=== PATIENT | female | born 1975 | race African-American/Black ===

== ENCOUNTER 2019-04-14 20:25 | Emergency (ER) | payer BC, MEDICAID ==
[~2019-04-14] VITALS: Ht 167.6 cm; Wt 71.7 kg
[~2019-04-14 20:25] MED LIST: PANTPAK
[2019-04-14 22:31] VITALS: BP 132/79
== END 2019-04-14 22:39 | disposition home or self-care (01) ==
LOC: ER 20:25
DX: R07.81 Pleurodynia (principal)
CPT/HCPCS: 71101

== ENCOUNTER 2024-06-21 17:52 | Emergency (ER) | payer MEDICAID ==
[~2024-06-21] VITALS: Ht 167.6 cm; Wt 77.7 kg
--- NOTE | 2024-06-21 19:34 | DVH ---
CLINICAL INDICATION: r/o fx TECHNIQUE: 3 radiographic views of the right knee were obtained. Comparison: None FINDINGS/IMPRESSION: There is no evidence of acute fracture or dislocation. Mild narrowing of the medial compartment of the right knee. Radiographic findings suggest joint effus ion. The alignment is anatomical. There is no radiopaque foreign body.
[2024-06-21 20:00] VITALS: BP 123/59; PULSE 97; RESP 17; TEMP 97.8; O2SAT 98
[2024-06-21] MEDS ORDERED: IBUP-1456 PO (20:31)
--- NOTE | 2024-06-21 20:32 | ED.PDOC ---
Musculoskeletal HPI Comments 48 year old female presents to ER with complaints of right knee pain x 2 days. Patient states she started experiencing pain/swelling to right knee 2 days ago s/p sticking her right leg out onto the ground to prevent her from falling off a quad that was traveling approximately 10-15 MPH. She rates her current pain a 8/10 to right shoulder without radiation. Denies use of medications for current symptoms and presents to ER with use of crutches that she brought from home. Denies numbness/tingling, hip pain, falling off the quad or any further symptoms/complaints Chief Complaint: Lower Extremity Time Seen by MD: 18:21 Primary Care Provider: CARLIN OLEA Reviewed Notes: Nurses Notes, Medications, Allergies Allergies: Coded Allergies: NO KNOWN ALLERGIES (Unverified , 10/08/09) Home Meds Active Scripts Ibuprofen (Ibuprofen) 800 Mg Tab, 1 TAB PO TID PRN, #30 TAB 0 Refills Prov:OK KITCHEN 06/21/24 Reported Medications Pantoprazole Sodium (Protonix) Alireza 10/08/09 Information Source: Patient Mode of Arrival: Ambulatory Past Medical History PAST MEDICAL HISTORY: HTN Surgical History: Denies all surgeries FINISHING PAN OPERATOR History: No Pertinent FINISHING PAN OPERATOR History Family History Family History: Unknown Social History Smoker: Non-Smoker Alcohol: Denies ETOH Use Drugs: Denies Drug Use Lives In: Home Constitutional: denies: chills, diaphoresis, fatigue, fever, malaise, sweats, weakness, others EENTM: denies: blurred vision, double vision, ear bleeding, ear discharge, ear drainage, ear pain, ear ringing, eye pain, eye redness, hearing loss, mouth pain, mouth swelling, nasal discharge, nose bleeding, nose congestion, nose pain, photophobia, tearing, throat pain, throat swelling, voice changes, others Respiratory: denies: cough, hemoptysis, orthopnea, SOB at rest, shortness of breath, SOB with excertion, stridor, wheezing, others Cardiovascular: denies: chest pain, dizzy spells, diaphoresis, Dyspnea on exertion, edema, irregular heart beat, left arm pain, lightheadedness, palpitations, PND, syncope, others Gastrointestinal: denies: abdomen distended, abdominal pain, blood streaked bowels, constipated, diarrhea, dysphagia, difficulty swallowing, hematemesis, melena, nausea, poor appetite, poor fluid intake, rectal bleeding, rectal pain, vomiting, others Genitourinary: denies: abnormal vagina bleeding, burning, dyspareunia, dysuria, flank pain, frequency, hematuria, incontinence, pain, , vagina discharge, urgency, others Neurological: denies: dizziness, fainting, headache, left sided numbness, left sided weakness, numbness, paresthesia, pre-existing deficit, right sided numbness, right sided weakness, seizure, speech problems, tingling, tremors, weakness, others Musculoskeletal: reports: others (As stated in HPI) Integumetry: reports: others (As stated in HPI) Allergic/Immunocompromised: denies: Difficulty Healing, Frequent Infections, Hives, Itching, others Hematologic/Lymphatic: denies: anemia, blood clots, easy bleeding, easy bruising, swollen glands, others Endocrine: denies: excessive hunger, excessive sweating, excessive thirst, excessive urination, flushing, intolerance to cold, intolerance to heat, unexplained weight gain, unexplained weight loss, others Psychiatric: denies: anxiety, bipolar disorder, depression, hopeless, panic disorder, schizophrenia, sleepless, suicidal, others Physical Exam General Appearance: No Apparent Distress HEENT: PERRL/EOMI Neck: Full Range of Motion, Non-Tender, Normal Respiratory: Chest Non-Tender, Lungs Clear, No Accessory Muscle Use, No Respiratory Distress, Normal Breath Sounds Cardiovascular: No Murmur, No Gallop, Regular Rate/Rhythm Breast Exam: Deferred Gastrointestinal: NOT DONE Genitalia: Deferred Pelvic: Deferred Rectal: Deferred Extremities: No calf tenderness, Normal capillary refill, Normal range of motion Musculoskeletal : Extremity Location: Knee (TTP/mild swelling noted to right anterior knee. Positive anterior drawer test right knee. No deformity/further skin changes noted. Patient favors left leg on ambulation due to pain localized to right anterior knee. Pulses intact) Neurologic: Alert, No Motor Deficits, Normal Affect, Normal Mood, No Sensory Deficits Cerebellar Function: Normal Reflexes: Normal Skin: Dry, Normal Color, Warm Peripheral Pulses: 2+ femoral (R), 2+ femoral (L), 2+ dorsalis pedis (R), 2+ dorsalis pedis (L) Lymphatic: No Adenopathy Was a procedure done? Was a procedure done?: No Sedation Sedation?: No Differential Diagnosis EXT Differential Diagnosis: Fracture, Dislocation, Neurovascular injury X-Ray, Labs, Meds, VS Vital Signs Date Time Temp Pulse Resp B/P (MAP) Pulse Ox O2 Delivery O2 Flow Rate FiO2 06/21/24 18:13 97.8 97 17 123/59 (80) 98 97.8 PATIENT: XOCHITL DALEACCT: [id number]: [id number] : 1975 LOC: ER ROOM / BED: / AGE / SEX: 48 / F ADM STATUS: REG ER SERVICE 11 ORDERING PHYSICIAN: OK KITCHEN PROCEDURE(s): RKN3 - R KNEE 3V XRAY REASON: r/o fx ORDER NUMBER(s): [id number], ACCESSION NUMBER(s): [id number] CLINICAL INDICATION: r/o fx TECHNIQUE: 3 radiographic views of the right knee were obtained. Comparison: None FINDINGS/IMPRESSION: There is no evidence of acute fracture or dislocation. Mild narrowing of the medial compartment of the right knee. Radiographic findings suggest joint effusion. The alignment is anatomical. There is no radiopaque foreign body. ATED BY: LAKEISHA RAHMAN Jr., DO DICTATED DATE/TIME: 06/21/241930 SIGNED BY: LAKEISHA RAHMAN Jr., SIGNED DATE/TIME: 06/21/241930 CC: Right knee x-ray reviewed Right knee immobilizer immobilizer applied Patient neurovascularly intact Advised on rest/no strenuous activity, elevation and alternate ice on/off as needed for pain/swelling Patient states she "borrowed" her current crutches and requested crutches in ER. Crutches ordered and patient educated on proper use Advised to follow up with PCP and orthopedics in 1-2 days Patient verbalized understanding and agreeable with current plan of care Advised to return to ER immediately if symptoms worsen Images Reviewed?: Images reviewed and evaluated by me Time of 1ST Reevaluation: 20:02 Reevaluation 1ST: N/A Patient Education/Counseling: Diagnosis, Treatment, Prognosis, Need For Follow Up Family Education/Counseling: No Family Present Departure 1 Departure Time of Disposition: 20:22 Impression: Primary Impression: Right knee sprain Qualified Codes: S83.91XA - Sprain of unspecified site of right knee, initial encounter Disposition: HOME / SELF CARE / HOMELESS Condition: Stable Additional Instructions: Discharge Note: Follow up with your primary Dr. and orthopedics Take your prescriptions as ordered. If your condition becomes worse call and follow up with your primary DrDilip for instructions or return to the ER if needed. Thank you for visiting [facility]. e-Prescriptions Ibuprofen (Ibuprofen) 800 Mg Tab 1 TAB PO TID PRN, #30 TAB 0 Refills Prov: OK KITCHEN 06/21/24 Discharged With: Friend Critical Care Note Critical Care Time?: No Stability Stability form required: No Heart Score Heart Score: Heart Score Response (Comments) Value History N/A 0 EKG N/A 0 Age N/A 0 Risk Factors N/A 0 Troponin N/A 0 Total 0 OK KITCHEN Jun 21, 2024 20:31
== END 2024-06-21 21:09 | disposition home or self-care (01) ==
LOC: ER 17:54
DX: S83.8X1A Sprain of other specified parts of right knee, initial encounter (principal); I10 Essential (primary) hypertension; X58.XXXA Exposure to other specified factors, initial encounter; Y93.89 Activity, other specified; Y92.89 Other specified places as the place of occurrence of the external cause; Y99.9 Unspecified external cause status
CPT/HCPCS: 29505; 73562

== ENCOUNTER 2024-10-02 22:43 | Inpatient (IN) | payer MEDICAID ==
[~2024-10-02] VITALS: Ht 167.6 cm; Wt 72.7 kg
[~2024-10-02 22:43] MED LIST changes: +IBUP-1456 PO
[2024-10-02 23:33] VITALS: RESP 18
[2024-10-02] MEDS: ONDANSETRON HCL 4 MG/2 ML VIAL IV ONE (23:50)
[2024-10-02] MEDS: MORPHINE SULFATE INJ 2 MG/ml SYRG IV ONE (23:51)
[2024-10-03] VITALS (7 sets, daily range): BP systolic 142–149; BP diastolic 70–83; PULSE 46–61; RESP 16–20; TEMP 98.3–99.2; O2SAT 97–100
[2024-10-03] MEDS: PANTOPRAZOLE 40 MG/10 ML VIAL INJ IV ONE ×2 (00:03→04:57)
--- NOTE | 2024-10-03 00:41 | ED.PDOC ---
History of Present Illness HPI Comments 48-year-old female who is brought in by ambulance from private residence for chief complaint of a abdominal and back pain, nausea, vomiting, and palpitations. Patient endorses on history of symptoms following initial, unprovoked and gradual onset. Pain is an 8/10 in severity and originates in her suprapubic region to her lower back. She reports symptoms feeling similar to when she had gastritis in the past. States on, usually, being treated for gastritis flare-ups with pain medications, Zofran, and and Protonix. Patient denies on having any bloody or bilious vomitus, diarrhea, constipation, urinary symptoms, fever, chills, or further associated symptoms. Per EMS report, vitals were stable within normal limits, with the exception bradycardic in the 50s having occasional PVCs shown via wine fermenter. Chief Complaint: Abdominal Pain Time Seen by MD: 23:40 Primary Care Provider: CARLIN OLEA Reviewed Notes: Nurses Notes, Air Conditioning Technician Notes, Medications, Allergies Allergies: Coded Allergies: NO KNOWN ALLERGIES (Unverified , 10/08/09) Home Meds Active Scripts Ibuprofen (Ibuprofen) 800 Mg Tab, 1 TAB PO TID PRN, #30 TAB 0 Refills Prov:OK KITCHEN 06/21/24 Reported Medications Oxycodone W/ Acetaminophen (Percocet 5/325MG) 1 Tab Tb, 2 TAB PO QID, #120 TAB 10/03/24 Tizanidine Hydrochloride (Zanaflex) 4 Mg Cap, 1 CAP PO BID, #60 CAP 10/03/24 Pantoprazole Sodium (Protonix) Alireza 10/08/09 Information Source: Patient, Emergency Med Personnel Mode of Arrival: Ambulatory Severity: Moderate Timing: Days Duration: Since onset Prehospital treatment: 12 Lead EKG, Accucheck, Fourdrinier Tender, Treatment (Zofran) Review of Systems: REVIEW OF SYSTEMS: General: No fever, no chills, or fatigue HEENT: No sore throat, no earache, no congestion, no neck pain. Cardiac: Palpitations, no chest pain Lungs: No shortness of breath, no cough. GI: Abdominal pain, nausea, vomiting no diarrhea, no constipation : No dysuria, frequency, or urgency. No hematuria. Musculoskeletal: Back pain, no joint pain , no joint swelling, no extremity edema. Skin: No rash, no itching. Neuro: No headache, no dizziness, no weakness Vital Signs Vital Signs Date Time Temp Pulse Resp B/P (MAP) Pulse Ox O2 Delivery O2 Flow Rate FiO2 10/03/24 02:00 65 18 141/66 (91) 95 10/02/24 23:33 Room Air* 0 21 10/02/24 23:18 99.1 99.1 Physical Exam PHYSICAL EXAM: General: Awake, alert and oriented. No acute distress. Skin: Skin in warm, dry and intact. Appropriate color for ethnicity. HEENT: The head is normocephalic and atraumatic. Conjunctivae are clear without exudates or hemorrhage. Sclera is non-icteric. EOM are intact. No signs of nystagmus. Eyelids are normal in appearance without swelling or lesions. Oral mucosa is pink and moist Neck: The neck is supple with normal range of motion. No JVD. Cardiac: Bradycardic heart rate but normal rhythm. No murmurs, gallops, or rubs are auscultated. Respiratory: No signs of respiratory distress. Lung sounds are clear in all lobes bilaterally without rales, rhonchi, or wheezes. Abdominal: Generalized abdominal tenderness. Abdomen is soft, without distention, guarding or rigidity. Bowel sounds are present and normoactive in all four quadrants. Extremities: Upper and lower extremities are atraumatic in appearance without deformity or edema. Neurological: The patient is awake, alert and oriented to person, place, and time with normal speech. Speech is clear. There is no facial asymmetry. Psychiatric: Appropriate mood and affect. Good judgement and insight. Past Medical History PAST MEDICAL HISTORY: HTN Past Medical History (Other): Gastritis Chronic back pain syndrome Surgical History: Denies all surgeries COTTON OPENER History: No Pertinent COTTON OPENER History Family History Family History: Unknown Social History Smoker: Non-Smoker Alcohol: Denies ETOH Use Drugs: Denies Drug Use Lives In: Home Was a procedure done? Was a procedure done?: No EKG EKG : Pulse Rate (adult): 66 [place]: Normal Cardiac Rhythm: NSR Block: None Hypertrophy: None ST: Normal Comments No STEMI Differential Dx Considerations may include: Differential diagnoses considered include: Abdominal aortic aneurysm, VA, esophageal rupture, intestinal obstruction, mesenteric ischemia, perforated viscus or solid organ rupture, CHF with hepatomegaly, pneumonia, abscess, appendicitis, biliary disease, diverticulitis, gastritis, gastroenteritis, hepatitis, hernia, inflammatory bowel disease, pancreatitis, peptic ulcer disease, urinary tract infection, ureteral colic, constipation, GERD, irritable syndrome, abdominal wall pain, nonspecific abdominal pain, herpes zoster, nephrolithiasis. [ ]Also ruptured ectopic , ovarian torsion/cyst, tubo- ovarian abscess, PID, endometriosis, mittleschmerz. X-Ray, Labs, Meds, VS Vital Signs Date Time Temp Pulse Resp B/P (MAP) Pulse Ox O2 Delivery O2 Flow Rate FiO2 10/03/24 02:00 65 18 141/66 (91) 95 10/03/24 00:41 66 10/03/24 00:24 61 19 140/70 10/02/24 23:51 74 13 97/66 10/02/24 23:33 18 Room Air* 0 21 10/02/24 23:18 99.1 64 17 97/66 (76) 99 99.1 10/02/24 23:01 99.3 59 16 170/83 (112) 98 99.3 10/02/24 22:57 66 Lab Test 10/03/24 02:42 10/03/24 01:37 10/03/24 00:11 Range/Units White Blood Count 9.4 4.4-10.8 10^3/uL Red Blood Count 4.66 4.0-5.20 10^6/uL Hemoglobin 13.7 12.2-16.2 g/dL Hematocrit 44.8 36.0-46.0 % Mean Corpuscular Volume 96.1 80.0-100.0 fL Mean Corpuscular Hemoglobin 29.3 28.0-32.0 pg Mean Corpuscular Hemoglobin Concent 30.5 L 32.0-36.0 g/dL Red Cell Distribution Width 15.7 H 11.8-14.3 % Platelet Count 227 140-450 10^3/uL Mean Platelet Volume 7.9 6.9-10.8 fL Neutrophils (%) (Auto) 83.3 H 37.0-80.0 % Lymphocytes (%) (Auto) 9.4 L 10.0-50.0 % Monocytes (%) (Auto) 7.3 0.0-12.0 % Eosinophils (%) (Auto) 0.0 0.0-7.0 % Basophils (%) (Auto) 0.0 0.0-2.0 % Neutrophils # (Auto) 7.9 1.6-8.6 10 ^3/uL Lymphocytes # (Auto) 0.9 0.4-5.4 10 ^3/uL Monocytes # (Auto) 0.7 0-1.3 10 ^3/uL Eosinophils # (Auto) 0 0-0.8 10 ^3/uL Basophils # (Auto) 0 0-0.2 10 ^3/uL Nucleated Red Blood Cells 0.0 % Lactic Acid Level 3.3 *H 2.9 *H 0.4-2.0 mmol/L Sodium Level 138 136-145 mmol/L Potassium Level 3.5 3.5-5.1 mmol/L Chloride Level 103 98-107 mmol/L Carbon Dioxide Level 20 20-31 mmol/L Anion Gap 15 5-15 Blood Urea Nitrogen 8 L 9-23 mg/dL Creatinine 0.70 0.550-1.02 mg/dL Glomerular Filtration Rate Calc 107 >90 mL/min BUN/Creatinine Ratio 11.4 10.0-20.0 Serum Glucose 113 H 74-106 mg/dL Calcium Level 10.4 8.7-10.4 mg/dL Total Bilirubin 0.8 0.2-1.0 mg/dL Aspartate Amino Transferase (AST) 34 13-40 U/L Alanine Aminotransferase (ALT) 23 7-40 U/L Alkaline Phosphatase 73 46-116 U/L Total Protein 9.5 H 5.7-8.2 g/dL Albumin 5.8 H 3.2-4.8 g/dL Lipase 32 12-53 U/L Thyroid Stimulating Hormone (TSH) 1.69 0.55-4.78 uIU/mL Current Medications Medications (Trade) Dose Ordered Sig/Floyd Route Start Time Stop Time Status Last Admin Morphine Sulfate 2 mg ONCE ONCE IV 10/03/24 00:00 10/03/24 00:01 DC 10/02/24 23:51 Ondansetron HCl (Zofran) 4 mg ONCE ONCE IV 10/03/24 00:00 10/03/24 00:01 MI 10/02/24 23:50 Pantoprazole Sodium (Protonix) 40 mg ONCE ONCE IV 10/03/24 00:00 10/03/24 00:01 DC 10/03/24 00:03 Sodium Chloride 1,000 ml @ 1,000 mls/hr Q1H ONCE IV 10/03/24 01:00 10/03/24 01:59 DC 10/03/24 01:12 Ketorolac Tromethamine (Toradol Injection) 15 mg ONCE ONCE IV 10/03/24 02:30 10/03/24 05:13 DC 10/03/24 02:56 Acetaminophen (Tylenol Tablet Or Capsule) 1,000 mg ONCE ONCE PO 10/03/24 02:30 10/03/24 02:31 DC 10/03/24 03:00 Sodium Chloride 1,000 ml @ 1,000 mls/hr Q1H ONCE IV 10/03/24 02:30 10/03/24 03:29 DC 10/03/24 02:54 Sodium Chloride 1,000 ml @ 130 mls/hr Q7H42M ONCE IV 10/03/24 02:30 10/03/24 08:52 DC 10/03/24 04:00 PATIENT: XOCHITL DALE ACCT: [id number] UNIT: [id number] : 1975 LOC: ER ROOM / BED: / AGE / SEX: 48 / F ADM STATUS: REG ER SERVICE [id number] ORDERING PHYSICIAN: MAXIMILIANO MATA MD PROCEDURE(s): ABPL - CT AB PEL WO CON-NO ORAL OR IV REASON: Abdominal pain ORDER NUMBER(s): [id number], ACCESSION NUMBER(s): [id number] Exam: CT CT AB PEL WO CON-NO ORAL OR IV History: Abdominal pain Comparison Study: None TECHNIQUE: Multidetector CT of the abdomen and pelvis was performed from lung bases to pubic symphysis. Imaging was performed without IV contrast. Axial, coronal, and sagittal multiplanar reformats were obtained from the axial data set by the technologist. RADIATION DOSE: CTDI vol 5.48 mGy. DLP 263.69 mGy.cm Findings: Limited evaluation of the solid organs in the absence of IV contrast. Liver: Unremarkable. Spleen: Unremarkable. Pancreas: Unremarkable. Gallbladder: Unremarkable. Adrenals: Unremarkable Kidneys: Unremarkable. Pelvic Viscera: Unremarkable. Vasculature: Unremarkable. Retroperitoneum: Absent Bowel: No bowel obstruction. Colonic diverticulosis without CT evidence of diverticulitis. The appendix is normal. Musculoskeletal: Unremarkable. Soft tissues: Unremarkable Lungs: The lung bases are clear. Impression: 1. No acute abdominopelvic abnormality identified. ATED BY: DENNIS CHILDERS MD DICTATED DATE/TIME: 10/03/2439 SIGNED BY: DENNIS CHILDERS MD SIGNED DATE/TIME: 10/03/2439 CC: Time of 1ST Reevaluation: 00:10 Reevaluation 1ST: Unchanged Patient Education/Counseling: Other (Need for admission) Family Education/Counseling: No Family Present SEPSIS Sepsis Screen Date sepsis recognized/suspect: Oct 02, 2024 Time Sepsis recognized/suspect: 2335 Recent Procedure: No On Antibiotic Therapy: No Respiratory Rate >20: No Heart Rate >90: No Temp<36 C (96.8 F) or >38.3 C: No SBP <90 or MAP <65 mmHG: No New Acute Mental Status Change: No Is the patient on CPAP, BIPAP,: No Physician Orders Ct Ab Pel Wo Con-No Oral Or Iv (10/02/24 23:52) Blood Culture (10/03/24 01:10) Vital Signs Date Time Temp Pulse Resp B/P (MAP) Pulse Ox O2 Delivery O2 Flow Rate FiO2 10/03/24 02:00 65 18 141/66 (91) 95 10/03/24 00:41 66 10/03/24 00:24 61 19 140/70 10/02/24 23:51 74 13 97/66 10/02/24 23:33 18 Room Air* 0 21 10/02/24 23:18 99.1 64 17 97/66 (76) 99 99.1 10/02/24 23:01 99.3 59 16 170/83 (112) 98 99.3 10/02/24 22:57 66 Laboratory Tests Test 10/03/24 00:11 10/03/24 01:37 10/03/24 02:42 Lactic Acid Level 2.9 mmol/L (0.4-2.0) *H 3.3 mmol/L (0.4-2.0) *H White Blood Count 9.4 10^3/uL (4.4-10.8) Departure 1 Departure Time of Disposition: 03:06 Impression: Primary Impression: Intractable abdominal pain Additional Impression: Lactic acidemia Disposition: ADMITTED INPATIENT Condition: Stable Comments Patient admitted to hospitalist service for further treatment, evaluation and monitoring. Extensive evaluation was performed in attempt to identify or rule out: (See differential diagnosis section) The following tests were ordered, and results were reviewed by me and discussed with patient: (See diagnostic results section) The following test were independently interpreted by me: N/A I reviewed and agreed with the following test results read by other providers: CT abdomen and pelvis without contrast I reviewed the following notes from the pt's past medical encounters: October 08, 2009, June 26, 2010, and June 21, 2024 encounters for abdominal pain, gastroenteritis, and right knee sprain, respectively Additional information was gathered from interviewing the following independent historians: EMS personnel Decision regarding hospitalization or escalation of hospital level of care: Risk and benefits of admission for further treatment of patient's condition was considered. Due to patient's current clinical condition, high risk of decline and poor outcome if discharged and need for further inpatient management and monitoring, patient will be admitted to the hospital. Drug therapy requiring intensive monitoring for toxicity: N/A Parenteral controlled substances: N/A Decision regarding elective major surgery with identified patient or procedure risk factors: N/A Decision regarding emergency major surgery: N/A Decision not to resuscitate or to de-escalate care because of poor prognosis: N/A Diagnosis or treatment significantly limited by social determinants of health: N/A Critical Care Note Critical Care Time?: No Stability Stability form required: No Heart Score Heart Score: Heart Score Response (Comments) Value History N/A 0 EKG N/A 0 Age N/A 0 Risk Factors N/A 0 Troponin N/A 0 Total 0 I personally scribed for MAXIMILIANO MATA MD ([email or web address]) on 10/03/24 at 00:41. Electronically submitted by Josiah Humphrey ([email or web address]). MAXIMILIANO MATA MD Oct 03, 2024 00:41
--- NOTE | 2024-10-03 00:44 | DVH ---
Exam: CT CT AB PEL WO CON-NO ORAL OR IV History: Abdominal pain Comparison Study: None TECHNIQUE: Multidetector CT of the abdomen and pelvis was performed from lung bases to pubic symphysi s. Imaging was performed without IV contrast. Axial, coronal, and sagittal multiplanar reformats were obtained from the axial data set by the technologist. RADIATION DOSE: CTDI vol 5.48 mGy. DLP 263.69 mGy.cm Findings: Limited evaluation of the solid organs in the absence of IV contrast. Liver: Unremarkable. Spleen: Unremarkable. Pancreas: Unremarkable. Gallbladder: Unremarkable. Adrenals: Unremarkable Kidneys: Unremarkable. Pelvic Viscera: Unremarkable. Vasculature: Unremarkable. Retroperitoneum: Absent Bowel: No bowel obstruction. Colonic diverticulosis without CT evidence of diverticulitis. The append ix is normal. Musculoskeletal: Unremarkable. Soft tissues: Unremarkable Lungs: The lung bases are clear. Impression: 1. No acute abdominopelvic abnormality identified.
[2024-10-03 00:53] LABS: Alanine Aminotransferase 23 U/L (7-40); Alkaline Phosphatase 73 U/L (46-116); Anion Gap 15 (5-15); BUN/Creatinine Ratio 11.4 (10.0-20.0); Calcium 10.4 mg/dL (8.7-10.4); Carbon Dioxide 20 mmol/L (20-31); Chloride 103 mmol/L (98-107); Lipase 32 U/L (12-53); Potassium 3.5 mmol/L (3.5-5.1); Sodium 138 mmol/L (136-145)
[2024-10-03 00:54] LABS: Bilirubin, Total 0.8 mg/dL (0.2-1.0)
[2024-10-03 01:07] LABS: Lactic Acid w/Reflex 2.9 mmol/L (0.4-2.0)
[2024-10-03 01:09] LABS: Albumin 5.8 g/dL (3.2-4.8); Blood Urea Nitrogen 8 mg/dL (9-23); Glucose 113 mg/dL (74-106); Total Protein 9.5 g/dL (5.7-8.2)
[2024-10-03] MEDS: SODIUM CHLORIDE 0.9% 1,000 ML IV ONE ×4 (01:12→05:48)
[2024-10-03] MEDS: KETOROLAC TROMETH 30 MG/ML 1ML VIAL IV ONE (02:53)
[2024-10-03] MEDS: ACETAMINOPHEN 500 MG TAB or CAP PO ONE (02:53)
[2024-10-03 03:03] LABS: Hematocrit 44.8 % (36.0-46.0); Hemoglobin 13.7 g/dL (12.2-16.2); Mean Corpuscular Hemoglobin 29.3 pg (28.0-32.0); Mean Corpuscular Volume 96.1 fL (80.0-100.0); Nucleated Red Blood Cells % 0.0 %
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
[2024-10-03 04:55] LABS: Urine Protein, UAD 2+ (Negative)
[2024-10-03] MEDS: SUCRALFATE 1 GM TAB PO ONE (04:57)
[2024-10-03 05:05] LABS: Cannabinoid Screen, Urine Pos (NEGATIVE)
[2024-10-03 05:15] LABS: Amphetamine Screen, Urine Neg (NEGATIVE); Barbiturate Scree,Urine Neg (NEGATIVE); Benzodiazephine Screen, Urine Neg (NEGATIVE); Cocaine Screen, Urine Neg (NEGATIVE); Opiate Scree,Urine Pos (NEGATIVE); Phencyclidine Screen, Urine Neg (NEGATIVE)
[2024-10-03] MEDS: CIPROFLOXACIN 400MG/200ML 200 ML IV ONE (05:48)
[2024-10-03] MEDS ORDERED: TIZA4CAP PO (06:33)
[2024-10-03] MEDS ORDERED: PERCOT PO (06:33)
[2024-10-03] MEDS: MORPHINE SULFATE INJ 2 MG/ml SYRG IV PRN (06:56)
[2024-10-03] MEDS: SUCRALFATE 1 GM TAB PO SCH (07:04)
[2024-10-03] MEDS: ONDANSETRON HCL 4 MG/2 ML VIAL IV PRN (11:18)
[2024-10-03] MEDS: PANTOPRAZOLE 40 MG/10 ML VIAL INJ IV SCH (11:18)
[2024-10-03] MEDS: CIPROFLOXACIN 400MG/200ML 200 ML IV SCH (11:19)
[2024-10-03] MEDS: HYDROcodone-ACET 10/325MG TAB PO PRN (12:44)
--- NOTE | 2024-10-03 13:03 | ECG ---
[facility] Test Date: 2024-10-02 Test Time: 22:57:15 Pat Name: XOCHITL DALE Department: ED Room: [address] [place] [address] 3 Gender: F [employer]: : [id number] Requested By: MAXIMILIANO MATA Order Number: [id number] Reading MD: Jae Niño Measurements Intervals Eva Rate: 66 P: 79 PA: 156 QRS: 65 QRSD: 82 T: 54 QT: 465 QTc: 488 Interpretive Statements Sinus rhythm Ventricular bigeminy Consider left ventricular hypertrophy Electronically Signed On 10-03-2024 19:33:32 PDT by Jae Niño Please click the below link to view image of tracing.
[2024-10-03] MEDS: LORazepam 2MG/ML-1ML VIAL IV SCH (14:45)
[2024-10-03] MEDS: D5W/SOD CHL 0.45% 1,000 ML IV SCH (14:45)
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
[2024-10-03] MEDS: ONDANSETRON HCL 4 MG/2 ML VIAL IV SCH (17:00)
[2024-10-03] MEDS: HYDROmorphone HCL 2 MG/ML VL/or syr IV PRN (17:02)
[2024-10-03] MEDS: METOCLOPRAMIDE HCL 10 MG TAB PO SCH (21:21)
[2024-10-03] MEDS: diphenhdrAMINE HCL 50 MG/1 ML VL IV SCH (21:34)
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
[2024-10-04] VITALS (8 sets, daily range): BP systolic 117–155; BP diastolic 79–94; PULSE 50–76; RESP 16–20; TEMP 97.8–98.6; O2SAT 97–99
[2024-10-04 06:02] LABS: Hematocrit 36.9 % (36.0-46.0); Hemoglobin 12.3 g/dL (12.2-16.2); Mean Corpuscular Hemoglobin 29.7 pg (28.0-32.0); Mean Corpuscular Volume 89.1 fL (80.0-100.0); Nucleated Red Blood Cells % 0.1 %
[2024-10-04 06:32] LABS: Alanine Aminotransferase 17 U/L (7-40); Albumin 4.4 g/dL (3.2-4.8); Alkaline Phosphatase 50 U/L (46-116); Anion Gap 10 (5-15); BUN/Creatinine Ratio 9.6 (10.0-20.0); Calcium 9.0 mg/dL (8.7-10.4); Carbon Dioxide 27 mmol/L (20-31); Chloride 99 mmol/L (98-107); Glucose 99 mg/dL (74-106); Total Protein 7.0 g/dL (5.7-8.2)
[2024-10-04 06:33] LABS: Bilirubin, Total 1.0 mg/dL (0.2-1.0)
[2024-10-04 06:34] LABS: Blood Urea Nitrogen 7 mg/dL (9-23); Potassium 3.0 mmol/L (3.5-5.1); Sodium 136 mmol/L (136-145)
[2024-10-04] MEDS: POTASSIUM CHL 20MEQ/100ML 100 ML IV SCH ×2 (08:45→19:28)
[2024-10-04] MEDS ORDERED: SODIUM CHLORIDE LOCK 10 ML ONE (10:52)
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
[2024-10-04] MEDS: LIDOCAINE VISCOUS 2% 15ML UD ONE (15:14)
[2024-10-04] MEDS: diphenhdrAMINE HCL 50 MG/1 ML VL ONE (15:15)
[2024-10-04] MEDS: fentaNYL CITRATE 100 MCG/2 ML VL ONE (15:15)
[2024-10-04] MEDS: MIDAZOLAM HCL 5 MG/ML-1ML VIAL ONE (15:15)
--- NOTE | 2024-10-04 15:30 | DVHOP2 ---
Operative Report DATE OF OPERATION: 10/04/24 PROCEDURE: Upper Endoscopy with biopsy. PREOPERATIVE INDICATION: The patient is a 48 -year-old female undergoing endoscopy for nausea vomiting and epigastric pain and weight loss POSTOPERATIVE DIAGNOSES: 1. 2 cm sliding-type hiatal hernia with no significant erosive esophagitis 2. Mild gastritis otherwise normal examination of the 2nd and 3rd part of the duodenum PROCEDURE PERFORMED BY: Lilliana Henson GI NURSE: Nitish SCOPE: Olympus videoendoscope. ASA CLASS: 2 PREOPERATIVE MEDICATIONS: Versed 5 mg, Fentanyl 100 mcg, Benadryl 50 mg I administered moderate sedation throughout this _7_ minutes procedure. An independent trained observer pushed medications at my direction, and monitored the patient's level of consciousness and physiological status throughout. PROCEDURE IN DETAIL: After obtaining an informed consent, the patient was placed on left lateral decubitus position. The patient was then sedated with the above medications. A bite block was placed between her teeth. The endoscope was then passed through the oropharynx, into the esophagus, and through the stomach and pylorus up to the second and third part of the duodenum. The endoscope was then withdrawn. The 2nd and 3rd part of the duodenum and the duodenal bulb were normal. Duod enal biopsies were obtained The pre-pyloric area antrum and body showed mild gastritis and gastric biopsies were obtained. On retroflexion the fundus cardia and angularis were normal. Duodenal and gastric biopsies were obtained. The endoscope was then withdrawn into the distal esophagus where she had a 2 cm sliding-type hiatal hernia with no significant erosive esophagitis The remaining distal and proximal esophagus and oropharynx were unremarkable The patient tolerated the procedure well without difficulty. COMPLICATIONS : None SPECIMENS: Duodenal biopsies Gastric biopsies DISPOSITION: Transfer back to the floor Stable PLAN: 1. Await for biopsy result 2. Will place pt on Protonix 40 mg bid IV 3. Carafate 1 g p.o. twice a day 4. Zofran as needed for nausea vomiting 5. Lifestyle and dietary modifications for GERD 6. Outpatient follow up with me in 4-6 weeks to review results and discuss further management LILLIANA HENSON MD Oct 04, 2024 15:30
[2024-10-04] MEDS: hydrALAZINE HCL 20 MG/ML VL IV ONE (16:16)
[2024-10-05 05:00] VITALS: BP 139/86; PULSE 69; RESP 18; TEMP 98.5; O2SAT 100
[2024-10-05 05:41] LABS: Hematocrit 40.8 % (36.0-46.0); Hemoglobin 13.4 g/dL (12.2-16.2); Mean Corpuscular Hemoglobin 29.9 pg (28.0-32.0); Mean Corpuscular Volume 91.0 fL (80.0-100.0); Nucleated Red Blood Cells % 0.1 %
[2024-10-05 06:05] LABS: Albumin 4.4 g/dL (3.2-4.8); Alkaline Phosphatase 51 U/L (46-116); Anion Gap 11 (5-15); BUN/Creatinine Ratio 9.1 (10.0-20.0); Calcium 9.1 mg/dL (8.7-10.4); Carbon Dioxide 25 mmol/L (20-31); Total Protein 7.1 g/dL (5.7-8.2)
[2024-10-05 06:06] LABS: Bilirubin, Total 1.0 mg/dL (0.2-1.0); Blood Urea Nitrogen 8 mg/dL (9-23); Chloride 98 mmol/L (98-107); Glucose 123 mg/dL (74-106); Potassium 3.1 mmol/L (3.5-5.1); Sodium 134 mmol/L (136-145)
[2024-10-05 06:07] LABS: Alanine Aminotransferase 40 U/L (7-40)
[2024-10-05] MEDS: POTASSIUM EFFERVESENT TAB 25 MEQ PO ONE (11:12)
[2024-10-05 13:00] VITALS: BP 145/87; PULSE 66; RESP 17; TEMP 97.4; O2SAT 98
[2024-10-05] MEDS ORDERED: SUCR1TAB PO (13:21)
[2024-10-05] MEDS ORDERED: AUG875T PO (13:21)
[2024-10-05] MEDS ORDERED: PANT40T PO (13:21)
--- NOTE | 2024-10-05 16:53 | DVHPN2 ---
Progress Note - Dictate Date Seen: Oct 05, 2024 Medical Necessity Reason Pt with a Central, PICC or Fol: No Subjective No new complaints patient is resting comfortably vital signs Vital Sign Date Time Temp Pulse Resp B/P (MAP) Pulse Ox O2 Delivery O2 Flow Rate FiO2 10/05/24 13:00 97.4 66 17 145/87 (106) 98 97.4 10/05/24 08:00 Room Air* 0 21 Total Intake and Output 10/04/24 10/04/24 10/05/24 15:00 23:00 07:00 Intake Total 210 ml 800 ml 1150 ml Output Total 750 ml Balance 210 ml 800 ml 400 ml medications Current Medications Medications Dose Ordered Sig/Floyd Route Start Time Stop Time Status Last Admin Dose Admin Pantoprazole Sodium 40 mg BID IV 10/03/24 10:00 10/05/24 11:14 40 MG Sucralfate 1 gm QIDACHS PO 10/03/24 07:00 10/05/24 11:13 1 GM Ciprofloxacin 200 ml @ 200 mls/hr Q12HR IV 10/03/24 10:00 10/05/24 11:14 200 MLS/HR Metronidazole 100 ml @ 100 mls/hr Q8H IV 10/03/24 15:00 10/05/24 04:59 100 MLS/HR Acetaminophen/ Hydrocodone Bitart 1 tab Q6HP PRN PO 10/03/24 11:30 10/05/24 15:32 1 TAB Diphenhydramine HCl 25 mg Q8HP IV 10/03/24 22:00 10/05/24 04:53 25 MG Hydromorphone HCl 0.5 mg Q4HPRN PRN IV 10/03/24 14:45 10/05/24 11:14 0.5 MG Dextrose/Sodium Chloride 1,000 ml @ 75 mls/hr [id number] IV 10/03/24 14:45 10/04/24 18:09 75 MLS/HR Ondansetron HCl 4 mg Q6HR IV 10/03/24 18:00 10/05/24 04:55 4 MG Lorazepam 0.5 mg Q6HP IV 10/03/24 14:45 objective General: Patient alert and oriented in person, place and time. Patient following commands. HEENT: Normocephalic, atraumatic, moist mucous membranes Respiratory/pulmonary: Clear lungs bilaterally, no associated crackles or wheezes. Cardiovascular: Normal heart sounds S1 and S2 with no associated murmurs Abdomen: Tenderness on palpation in epigastric region and right flank. Guarding, present. No palpable masses. Extremities: There is no peripheral edema present at the lower extremities. Skin: No rashes or pruritus, there is no sacral edema present at this time. Neurological: Intact cranial nerves with no focal neurologic deficits laboratory and microbiology Laboratory Tests 10/05/24 15:00 10/05/24 05:11 Test 10/05/24 05:11 Range/Units Serum Glucose 123 H 74-106 mg/dL Problems(with codes): (1) Epigastric abdominal pain (2) Lactic acidemia (3) Diarrhea (4) Intractable abdominal pain (5) Hiatal hernia (6) Gastritis Prognosis Plan Protonix 40 mg p.o. q.a.m. Carafate 1 g p.o. q.h.s. DC aspirin NSAIDs smoking alcohol Discharge planning is in progress She can follow up in my office as an outpatient for elective colonoscopy Once again thank you for allowing me to participate in the care of this patient Plan discussed with: Patient, Other (Nurse) LILLIANA GHOSH MD Oct 05, 2024 16:53
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
== END 2024-10-05 17:40 | disposition home or self-care (01) | DRG 249 ==
LOC: EDBD 22:43 → ER 22:43 → OVERFLOW 10-03 03:46 → EAST 10-03 05:34
PROVIDERS: ADMIT Student in an Organized Health Care Education/Training Program; ATTEND Emergency Medicine
PROC: 0DB68ZX Excision of Stomach, Via Natural or Artificial Opening Endoscopic, Diagnostic (ICD-10-PCS; 2024-10-04)
PROC: 0DB98ZX Excision of Duodenum, Via Natural or Artificial Opening Endoscopic, Diagnostic (ICD-10-PCS; principal; 2024-10-04 15:10)
DX: A09 Infectious gastroenteritis and colitis, unspecified (principal); E87.20 Acidosis, unspecified; K29.50 Unspecified chronic gastritis without bleeding; K29.00 Acute gastritis without bleeding; I10 Essential (primary) hypertension; K27.9 Peptic ulcer, site unspecified, unspecified as acute or chronic, without hemorrhage or perforation; I49.3 Ventricular premature depolarization; K57.92 Diverticulitis of intestine, part unspecified, without perforation or abscess without bleeding; R00.1 Bradycardia, unspecified; K44.9 Diaphragmatic hernia without obstruction or gangrene; E87.6 Hypokalemia; K21.9 Gastro-esophageal reflux disease without esophagitis; G89.4 Chronic pain syndrome; I51.7 Cardiomegaly; K57.30 Diverticulosis of large intestine without perforation or abscess without bleeding; Z83.3 Family history of diabetes mellitus; Z82.49 Family history of ischemic heart disease and other diseases of the circulatory system; Z79.899 Other long term (current) drug therapy; Z88.5 Allergy status to narcotic agent
CPT/HCPCS: 36415; 43239; 80053; 80307; 80320; 81001; 83605; 83690; 84132; 84443; 84484; 84702; 85025; 87040; 93005; 96365; 96375; G0378; J1885; J2250; J2405; J2470; J3480; J3490

== ENCOUNTER 2024-11-28 02:44 | Inpatient (IN) | payer MEDICAID ==
[~2024-11-28] VITALS: Ht 167.6 cm; Wt 69.8 kg
[~2024-11-28 02:44] MED LIST changes: +AUG875T PO; +PANT40T PO; +PERCOT PO; +SUCR1TAB PO; +TIZA4CAP PO
[2024-11-28] MEDS: SODIUM CHLORIDE 0.9% 1,000 ML IVB ONE (03:00)
[2024-11-28 03:37] LABS: Hematocrit 46.2 % (36.0-46.0); Hemoglobin 15.7 g/dL (12.2-16.2); Mean Corpuscular Hemoglobin 29.9 pg (28.0-32.0); Mean Corpuscular Volume 88.2 fL (80.0-100.0); Nucleated Red Blood Cells % 0.3 %
--- NOTE | 2024-11-28 03:50 | ED.PDOC ---
History of Present Illness HPI Comments 49 y/o F, with a history of GERD and HTN, is BIBA from private residence for c/c nonradiating, generalized abdominal pain, nausea, vomiting, and diarrhea. Endorsement of 10x day history of symptoms, which have been progressively worsening following initial, unprovoked and atraumatic onset. Denial of any bloo dy vomitus or stool, constipation, urinary symptoms, fever, chills, or further associated symptoms. Chief Complaint: Abdominal Pain Time Seen by MD: 02:50 Primary Care Provider: CARLIN OLEA Reviewed Notes: Nurses Notes, Medications, Allergies Allergies: Coded Allergies: NO KNOWN ALLERGIES (Unverified , 11/28/24) Home Meds Active Scripts Sucralfate (Sucralfate) 1 Gm Tab, 1 GM PO BID for 20 Days, #40 TAB Prov:CARLIE AcSANDIP RESIDENT 10/05/24 Pantoprazole Sodium Sesquihydr (Pantoprazole Sodium) 40 Mg Tab, 40 MG PO DAILY for 30 Days, #30 TAB Prov:SANDIP HANNAH RESIDENT 10/05/24 Amoxicillin & Pot Clavulanate (AUGMENTIN TABLET) 875 Mg Tb, 875 MG PO BID for 3 Days, #6 TAB Prov:CAROLINE HANNAHE RESIDENT 10/05/24 Ibuprofen (Ibuprofen) 800 Mg Tab, 1 TAB PO TID PRN, #30 TAB 0 Refills Prov:OK KITCHEN 06/21/24 Reported Medications Oxycodone W/ Acetaminophen (Percocet 5/325MG) 1 Tab Tb, 2 TAB PO QID, #120 TAB 10/03/24 Tizanidine Hydrochloride (Zanaflex) 4 Mg Cap, 1 CAP PO BID, #60 CAP 10/03/24 Pantoprazole Sodium (Protonix) Alireza 10/08/09 Information Source: Patient Mode of Arrival: EMS Past Medical History PAST MEDICAL HISTORY: GERD, HTN Surgical History: Denies all surgeries SENIOR PRODUCT MARKETING MANAGER History: No Pertinent SENIOR PRODUCT MARKETING MANAGER History Family History Family History: Unknown Social History Smoker: Non-Smoker Alcohol: Denies ETOH Use Drugs: Denies Drug Use Lives In: Home All Other Systems: Reviewed and Negative (as per HPI) Physical Exam General Appearance: Moderate Distress, Normal HEENT: Normal ENT Inspection, Pharynx Normal, TMs Normal Neck: Full Range of Motion, Non-Tender, Normal, Normal Inspection Respiratory: Chest Non-Tender, Lungs Clear, No Accessory Muscle Use, No Respiratory Distress, Normal Breath Sounds Cardiovascular: No Edema, No JVD, No Murmur, No Gallop, Normal Peripheral Pulses, Regular Rate/Rhythm Breast Exam: Deferred Gastrointestinal: Diffuse, LLQ (tenderness ), LUQ (tenderness ), No Organomegaly, No Pulsatile Mass, Normal Bowel Sounds, RLQ (tenderness ), RUQ (tenderness ), Soft, Tenderness (mild tenderness to all four quadrants without rebound or guarding) Genitalia: Deferred Pelvic: Deferred Rectal: Deferred Extremities: No calf tenderness, Normal capillary refill, Normal inspection, Normal range of motion, Non-tender, No pedal edema Musculoskeletal : Apperance: Normal Neurologic: Alert, yard switch operator II-XII nml as Tested, No Motor Deficits, Normal Affect, Normal Mood, No Sensory Deficits Cerebellar Function: Normal Reflexes: Normal Skin: Dry, Normal Color, Warm Lymphatic: No Adenopathy Was a procedure done? Was a procedure done?: No Differential Dx Considerations may include: gastritis, gastroenteritis, GERD, PUD, viral syndrome, spoiled food, among othe rs X-Ray, Labs, Meds, VS Vital Signs Date Time Temp Pulse Resp B/P (MAP) Pulse Ox O2 Delivery O2 Flow Rate FiO2 11/28/24 06:52 98 20 99 Room Air 11/28/24 06:52 97.6 98 20 116/64 (81) 99 97.6 11/28/24 05:10 57 18 129/102 11/28/24 02:59 97.7 55 18 131/92 97 97.7 Lab Test 11/28/24 04:17 11/28/24 03:13 Range/Units Sodium Level 138 136-145 mmol/L Potassium Level 3.2 L 3.5-5.1 mmol/L Chloride Level 100 98-107 mmol/L Carbon Dioxide Level 23 20-31 mmol/L Anion Gap 15 5-15 Blood Urea Nitrogen 6 L 9-23 mg/dL Creatinine 0.76 0.550-1.02 mg/dL Glomerular Filtration Rate Calc 97 >90 mL/min BUN/Creatinine Ratio 7.9 L 10.0-20.0 Serum Glucose 121 H 74-106 mg/dL Calcium Level 10.5 H 8.7-10.4 mg/dL Total Bilirubin 0.6 0.2-1.0 mg/dL Aspartate Amino Transferase (AST) 27 13-40 U/L Alanine Aminotransferase (ALT) 32 7-40 U/L Alkaline Phosphatase 76 46-116 U/L Total Protein 9.7 H 5.7-8.2 g/dL Albumin 6.0 H 3.2-4.8 g/dL Lipase 59 H 12-53 U/L White Blood Count 8.2 4.4-10.8 10^3/uL Red Blood Count 5.24 H 4.0-5.20 10^6/uL Hemoglobin 15.7 12.2-16.2 g/dL Hematocrit 46.2 H 36.0-46.0 % Mean Corpuscular Volume 88.2 80.0-100.0 fL Mean Corpuscular Hemoglobin 29.9 28.0-32.0 pg Mean Corpuscular Hemoglobin Concent 33.9 32.0-36.0 g/dL Red Cell Distribution Width 13.9 11.8-14.3 % Platelet Count 184 140-450 10^3/uL Mean Platelet Volume 9.1 6.9-10.8 fL Neutrophils (%) (Auto) 74.0 37.0-80.0 % Lymphocytes (%) (Auto) 19.3 10.0-50.0 % Monocytes (%) (Auto) 3.3 0.0-12.0 % Eosinophils (%) (Auto) 0.6 0.0-7.0 % Basophils (%) (Auto) 2.8 H 0.0-2.0 % Neutrophils # (Auto) 6.0 1.6-8.6 10 ^3/uL Lymphocytes # (Auto) 1.6 0.4-5.4 10 ^3/uL Monocytes # (Auto) 0.3 0-1.3 10 ^3/uL Eosinophils # (Auto) 0.1 0-0.8 10 ^3/uL Basophils # (Auto) 0.2 0-0.2 10 ^3/uL Nucleated Red Blood Cells 0.3 % Platelet Estimate Adequate Large Platelets Few Current Medications Medications (Trade) Dose Ordered Sig/Floyd Route Start Time Stop Time Status Last Admin Ondansetron HCl (Zofran) 4 mg ONCE ONCE IV 11/28/24 03:00 11/28/24 03:01 DC 11/28/24 05:15 Sodium Chloride 1,000 ml @ 1,000 mls/hr Q1H ONCE IVB 11/28/24 03:00 11/28/24 03:59 DC 11/28/24 03:00 Morphine Sulfate 4 mg ONCE ONCE IV 11/28/24 03:00 11/28/24 03:01 DC 11/28/24 05:10 Time of 1ST Reevaluation: 03:15 Reevaluation 1ST: Unchanged Patient Education/Counseling: Diagnosis, Treatment Family Education/Counseling: No Family Present SEPSIS Sepsis Screen Date sepsis recognized/suspect: Nov 28, 2024 Time Sepsis recognized/suspect: 252 Recent Procedure: No On Antibiotic Therapy: No Respiratory Rate >20: No Heart Rate >90: No Temp<36 C (96.8 F) or >38.3 C: No SBP <90 or MAP <65 mmHG: No New Acute Mental Status Change: No Is the patient on CPAP, BIPAP,: No Physician Orders Urinalysis (11/28/24 02:55) Ct Ab Pel Wo Con-No Oral Or Iv (11/28/24 02:55) Vital Signs Date Time Temp Pulse Resp B/P (MAP) Pulse Ox O2 Delivery O2 Flow Rate FiO2 11/28/24 06:52 98 20 99 Room Air 11/28/24 06:52 97.6 98 20 116/64 (81) 99 97.6 11/28/24 05:10 57 18 129/102 11/28/24 02:59 97.7 55 18 131/92 97 97.7 Laboratory Tests Test 11/28/24 03:13 White Blood Count 8.2 10^3/uL (4.4-10.8) Medications Medications Dose Ordered Sig/Floyd Route Start Time Stop Time Status Last Admin Dose Admin Morphine Sulfate 4 mg ONCE ONCE IV 11/28/24 03:00 11/28/24 03:01 DC 11/28/24 05:10 Ondansetron HCl 4 mg ONCE ONCE IV 11/28/24 03:00 11/28/24 03:01 DC 11/28/24 05:15 Sodium Chloride 1,000 ml @ 1,000 mls/hr Q1H ONCE IVB 11/28/24 03:00 11/28/24 03:59 DC 11/28/24 03:00 Departure 1 Departure Time of Disposition: 08:41 Impression: Primary Impression: Intractable abdominal pain Disposition: ADMITTED INPATIENT Admit to: Med Surg Condition: Guarded Critical Care Note Critical Care Time?: No Stability Stability form required: No Heart Score Heart Score: Heart Score Response (Comments) Value History N/A 0 EKG N/A 0 Age N/A 0 Risk Factors N/A 0 Troponin N/A 0 Total 0 I personally scribed for SHAAN DOUGLAS MD ([email or web address]) on 11/28/24 at 03:50. Electronically submitted by Josiah Humphrey [email or web address]). SHAAN DOUGLAS MD Nov 28, 2024 03:50 JENNIFER SOLARES MD Nov 28, 2024 08:41
[2024-11-28 04:55] LABS: Alanine Aminotransferase 32 U/L (7-40); Alkaline Phosphatase 76 U/L (46-116); Anion Gap 15 (5-15); BUN/Creatinine Ratio 7.9 (10.0-20.0); Carbon Dioxide 23 mmol/L (20-31); Chloride 100 mmol/L (98-107); Sodium 138 mmol/L (136-145)
[2024-11-28 04:56] LABS: Bilirubin, Total 0.6 mg/dL (0.2-1.0)
[2024-11-28 05:05] LABS: Albumin 6.0 g/dL (3.2-4.8); Blood Urea Nitrogen 6 mg/dL (9-23); Calcium 10.5 mg/dL (8.7-10.4); Glucose 121 mg/dL (74-106); Lipase 59 U/L (12-53); Potassium 3.2 mmol/L (3.5-5.1); Total Protein 9.7 g/dL (5.7-8.2)
[2024-11-28] MEDS: MORPHINE SULFATE 4 MG/ML SYR/VIAL IV ONE ×2 (05:10→10:19)
[2024-11-28] MEDS: ONDANSETRON HCL 4 MG/2 ML VIAL IV ONE (05:15)
[2024-11-28] MEDS: IOHEXOL 300 MG/ML 100ML BOTTLE IJ ONE (05:16)
[2024-11-28] MEDS: POTASSIUM CHL 20 Meq TABLET PO ONE ×2 (06:15→18:37)
--- NOTE | 2024-11-28 07:44 | DVH ---
CLINICAL INFORMATION: Abdominal pain. TECHNIQUE: Axial CT images of the abdomen and pelvis were obtained without IV contrast. Coronal and s agittal reformatted images were obtained, reviewed, and stored. Evaluation of the parenchymal organs is limited without IV contrast. Evaluation of the bowel and mesentery is limited without oral contras t. All CT scans at this medical facility are performed using dose modulation techniques as appropriat e to a performed exam including the following: Automated exposure control was utilized; adjustment of the MA and/or KV according to patient size; and use of iterative reconstruction technique. CTDIvol = 9.74 mGy DLP = 614.79 mGy-cm COMPARISON: CT CT AB PEL WO CON-NO ORAL OR IV on DOS: 10/02/24 FINDINGS: Examination is limited due to motion artifact and prominent beam hardening artifact. There is dense material in the visualized portions of the right arm near the antecubital region, likely ext ravasated IV contrast causing prominent beam hardening artifact. There is also beam hardening artifac t from the patient being scanned with arms at sides. Lung bases: Lung bases are clear. Liver: Grossly unremarkable. Biliary: Ill-defined density within the gallbladder, may be artifact or possible sludge. Spleen: Grossly unremarkable. Pancreas: Grossly unremarkable. Adrenal glands: Grossly unremarkable. Kidneys: No hydronephrosis. No renal or ureteral calculi. Aorta/Vascular: No abdominal aortic aneurysm. Minimal calcification. Retroperitoneum: Grossly unremarkable. Bowel/mesentery: No small bowel obstruction. No free air or free fluid. Appendix is visualized and ap pears unremarkable. Pelvic organs: Grossly unremarkable. Bladder: Unremarkable. No mass. Abdominal wall: No mass or hernia. Bones: No acute fracture or suspicious intraosseous lesion. IMPRESSION: 1. Limited examination for the reasons described above. 2. No acute abnormality identified in the abdomen or pelvis.
[2024-11-28] MEDS ORDERED: ONDANSETRON HCL 4 MG/2 ML VIAL IV ONE (09:00)
--- NOTE | 2024-11-28 09:39 | ECG ---
[facility] Test Date: 2024-11-28 Test Time: 09:38:21 Pat Name: XOCHITL DALE Department: [facility] ED Room: [address] [place] [address] Gender: F Campground Attendant: gp : [id number] Requested By: BESSY WILDE Order Number: [id number] Reading MD: Jae Niño Measurements Intervals [place] Rate: 88 P: 79 MO: 156 QRS: 55 QRSD: 79 T: 0 QT: 325 QTc: 394 Interpretive Statements Sinus rhythm Ventricular bigeminy Right atrial enlargement LVH w/ repol abnormalities, possible ischemia Electronically Signed On 11-28-2024 14:28:41 PDT by Jae Niño Please click the below link to view image of tracing.
[2024-11-28] MEDS ORDERED: PANTOPRAZOLE 40 MG/10 ML VIAL INJ IV ONE (10:15)
[2024-11-28] MEDS ORDERED: MORPHINE SULFATE INJ 2 MG/ml SYRG IV PRN ×3 (10:15→10:30)
[2024-11-28] MEDS ORDERED: DOCUSATE SOD 100 MG CAP PO PRN (10:15)
[2024-11-28] MEDS ORDERED: METOCLOPRAMIDE HCL 5MG/ml INJ 2ml VIAL IV PRN (10:15)
[2024-11-28] MEDS ORDERED: NITROGLYCERIN 0.4 MG SL TAB SL PRN ×2 (10:15→10:30)
[2024-11-28] MEDS ORDERED: ACETAMINOPHEN 325 MG TAB PO PRN ×2 (10:15→10:30)
[2024-11-28] MEDS ORDERED: HYDROcodone-ACET 5/325MG TAB PO PRN (10:15)
[2024-11-28] MEDS: METOCLOPRAMIDE HCL 5MG/ml INJ 2ml VIAL IV ONE (10:17)
--- NOTE | 2024-11-28 10:29 | DVHHP2 ---
History of Present Illness Reason for Visit: Abdoinal pain History of Present Illness hyacinth Galvez is a 49-year-old female with past medical history of GERD, gastritis, and hiatal hernia, who was brought to the hospital by EMS for abdominal pain. Patient states she has been experiencing abdominal pain with associated nausea, vomiting, and diarrhea for 10 days. She has not been able to keep any food down, and her symptoms have been worsening prompting her to come to the hospital. Patient was admitted here for similar complaint in September. An EGD was completed that showed gastritis and a hiatal hernia. Today patient was also found to be hypokalemic and in a ventricular bigeminy rhythm, with a braycardic pulse in the 30-40's. She states that she was not aware of her heart rhythm being irregular. GI: GERD, Gastritis, Other (Hiatal hernia) Past Surgical History: None Smoke: <1 pack per day (Vapes) ALCOHOL: rare Drugs: None Lives: with Family Domestic Violence: Neg Review of Systems Constitutional: No: Fever, Chills, Sweats, Weakness, Malaise, Other Eyes: No: Pain, Vision change, Conjunctivae inflammation, Eyelid inflammation, Other, Redness ENT: No: Ear pain, Ear discharge, Nose pain, Nose discharge, Nose congestion, Mouth pain, Mouth swelling, Throat pain, Throat swelling, Other Respiratory: No: Cough, Dry, Shortness of breath, SOB with excertion, Wheezing, Hemoptysis, Pleuritic Pain, Sputum, Wheezing, Other Cardiovascular: No: Chest Pain, Palpitations, Orthopnea, Paroxysmal Noc. Dyspnea, Edema, Lt Headedness, Other Gastrointestinal: Nausea, Vomiting, Abdominal Pain; No: Diarrhea, Constipation, Melena, Hematochezia, Other Genitourinary: No Dysuria, No Frequency, No Incontinence, No Hematuria, No Retention, No Other Musculoskeletal: No: other, neck pain, shoulder pain, arm pain, back pain, hand pain, leg pain, foot pain Skin: No: Rash, Lesions, Jaundice, Bruising, Other Neurological: No: Weakness, Numbness, Incoordination, Change in speech, Confusion, Seizures, Other Allergies: Coded Allergies: NO KNOWN ALLERGIES (Unverified , 11/28/24) Medications Current Medications Medications Dose Ordered Sig/Floyd Route Start Time Stop Time Status Last Admin Dose Admin Acetaminophen/ Hydrocodone Bitart 1 tab Q4HP PRN PO 11/28/24 10:15 UNV Docusate Sodium 100 mg BIDPRN PRN PO 11/28/24 10:15 UNV Acetaminophen 650 mg Q6HP PRN PO 11/28/24 10:15 UNV Morphine Sulfate 2 mg Q4HPRN PRN IV 11/28/24 10:15 UNV Nitroglycerin 0.4 mg Q5MINP PRN SL 11/28/24 10:15 UNV Morphine Sulfate 2 mg Q30M PRN IV 11/28/24 10:15 UNV Metoclopramide HCl 10 mg Q6HPRN PRN IV 11/28/24 10:15 UNV Exam Vital Signs Vital Signs Date Time Temp Pulse Resp B/P (MAP) Pulse Ox O2 Delivery O2 Flow Rate FiO2 11/28/24 09:38 88 11/28/24 06:52 20 99 Room Air 11/28/24 06:52 97.6 116/64 (81) 97.6 General Appearance: Alert, Oriented X3, Cooperative, moderate distress HEENT: Atraumatic, PERRLA Respiratory: Clear to auscultation, Normal air movement Cardiovascular: Other (SB, Ventricular bigeminy) Extremities: No clubbing, No cyanosis, No edema, Normal pulses Skin: No rashes, No breakdown, No significant lesion Neuro: Normal gait, Normal speech, Strength at 5/5 X4 ext Psych/Mental Status: Mental status NL Labs/Xrays Labs Test 11/28/24 04:17 11/28/24 03:13 Range/Units Sodium Level 138 136-145 mmol/L Potassium Level 3.2 L 3.5-5.1 mmol/L Chloride Level 100 98-107 mmol/L Carbon Dioxide Level 23 20-31 mmol/L Anion Gap 15 5-15 Blood Urea Nitrogen 6 L 9-23 mg/dL Creatinine 0.76 0.550-1.02 mg/dL Glomerular Filtration Rate Calc 97 >90 mL/min BUN/Creatinine Ratio 7.9 L 10.0-20.0 Serum Glucose 121 H 74-106 mg/dL Calcium Level 10.5 H 8.7-10.4 mg/dL Total Bilirubin 0.6 0.2-1.0 mg/dL Aspartate Amino Transferase (AST) 27 13-40 U/L Alanine Aminotransferase (ALT) 32 7-40 U/L Alkaline Phosphatase 76 46-116 U/L Total Protein 9.7 H 5.7-8.2 g/dL Albumin 6.0 H 3.2-4.8 g/dL Amylase Level 96 30-118 U/L Lipase 59 H 12-53 U/L White Blood Count 8.2 4.4-10.8 10^3/uL Red Blood Count 5.24 H 4.0-5.20 10^6/uL Hemoglobin 15.7 12.2-16.2 g/dL Hematocrit 46.2 H 36.0-46.0 % Mean Corpuscular Volume 88.2 80.0-100.0 fL Mean Corpuscular Hemoglobin 29.9 28.0-32.0 pg Mean Corpuscular Hemoglobin Concent 33.9 32.0-36.0 g/dL Red Cell Distribution Width 13.9 11.8-14.3 % Platelet Count 184 140-450 10^3/uL Mean Platelet Volume 9.1 6.9-10.8 fL Neutrophils (%) (Auto) 74.0 37.0-80.0 % Lymphocytes (%) (Auto) 19.3 10.0-50.0 % Monocytes (%) (Auto) 3.3 0.0-12.0 % Eosinophils (%) (Auto) 0.6 0.0-7.0 % Basophils (%) (Auto) 2.8 H 0.0-2.0 % Neutrophils # (Auto) 6.0 1.6-8.6 10 ^3/uL Lymphocytes # (Auto) 1.6 0.4-5.4 10 ^3/uL Monocytes # (Auto) 0.3 0-1.3 10 ^3/uL Eosinophils # (Auto) 0.1 0-0.8 10 ^3/uL Basophils # (Auto) 0.2 0-0.2 10 ^3/uL Nucleated Red Blood Cells 0.3 % Platelet Estimate Adequate Large Platelets Few TECHNIQUE: Axial CT images of the abdomen and pelvis were obtained without IV contrast. FINDINGS: Examination is limited due to motion artifact and prominent beam hardening artifact. There is dense material in the visualized portions of the right arm near the antecubital region, likely extravasated IV contrast causing prominent beam hardening artifact. There is also beam hardening artifact from the patient being scanned with arms at sides. Lung bases: Lung bases are clear. Liver: Grossly unremarkable. Biliary: Ill-defined density within the gallbladder, may be artifact or possible sludge. Spleen: Grossly unremarkable. Pancreas: Grossly unremarkable. Adrenal glands: Grossly unremarkable. Kidneys: No hydronephrosis. No renal or ureteral calculi. Aorta/Vascular: No abdominal aortic aneurysm. Minimal calcification. Retroperitoneum: Grossly unremarkable. Bowel/mesentery: No small bowel obstruction. No free air or free fluid. Appendix is visualized and appears unremarkable. Pelvic organs: Grossly unremarkable. Bladder: Unremarkable. No mass. Abdominal wall: No mass or hernia. Bones: No acute fracture or suspicious intraosseous lesion. IMPRESSION: 1. Limited examination for the reasons described above. 2. No acute abnormality identified in the abdomen or pelvis. SEPSIS Sepsis Screen Date sepsis recognized/suspect: Nov 28, 2024 Time Sepsis recognized/suspect: 652 Recent Procedure: No On Antibiotic Therapy: No Respiratory Rate >20: No Heart Rate >90: Yes Temp<36 C (96.8 F) or >38.3 C: No SBP <90 or MAP <65 mmHG: No New Acute Mental Status Change: No Is the patient on CPAP, BIPAP,: No Physician Orders Urinalysis (11/28/24 02:55) Ct Ab Pel Wo Con-No Oral Or Iv (11/28/24 02:55) Electrocardigram (11/28/24 09:58) Electrocardigram (11/28/24 11:58) Metoclopramide Injection (Reglan Injecti (11/28/24 10:15) Admit (11/28/24 10:04) Code Status (11/28/24 10:04) Hydrocodone-Acet 5/325mg Tab ([place] 5/32 (11/28/24 10:15) Docusate Sodium Capsule (Colace Capsule) (11/28/24 10:15) Complete Blood Count (11/29/24 04:00) Comprehensive Metabolic Panel (11/29/24 04:00) Condition: Serious (11/28/24 10:04) Acetaminophen Tablet (Tylenol Tablet) (11/28/24 10:15) Clear Liq Diet (11/28/24 Lunch) Morphine Sulfate Injection (11/28/24 10:15) Nitroglycerin Sublingual (Ntrostat Subli (11/28/24 10:15) Morphine Sulfate Injection (11/28/24 10:15) Stat Ekg For Chest Pain (11/28/24 10:04) Notify Md Of Changes From Base (11/28/24 10:04) Industrial Electrician For 24 Hours (11/28/24 10:04) Emergency Dysrhythmia Protocol (11/28/24 10:04) Rhythm Strips Once Every Shift (11/28/24 10:04) Oxygen By Nasal Cannula (11/28/24 10:04) Metoclopramide Injection (Reglan Injecti (11/28/24 10:15) Vital Signs Date Time Temp Pulse Resp B/P (MAP) Pulse Ox O2 Delivery O2 Flow Rate FiO2 11/28/24 09:38 88 11/28/24 06:52 98 20 99 Room Air 11/28/24 06:52 97.6 98 20 116/64 (81) 99 97.6 11/28/24 05:10 57 18 129/102 11/28/24 02:59 97.7 55 18 131/92 97 97.7 Laboratory Tests Test 11/28/24 03:13 White Blood Count 8.2 10^3/uL (4.4-10.8) Medications Medications Dose Ordered Sig/Floyd Route Start Time Stop Time Status Last Admin Dose Admin Morphine Sulfate 4 mg ONCE ONCE IV 11/28/24 03:00 11/28/24 03:01 DC 11/28/24 05:10 4 MG Ondansetron HCl 4 mg ONCE ONCE IV 11/28/24 03:00 11/28/24 03:01 DC 11/28/24 05:15 4 MG Sodium Chloride 1,000 ml @ 1,000 mls/hr Q1H ONCE IVB 11/28/24 03:00 11/28/24 03:59 DC 11/28/24 03:00 1,000 MLS/HR Assessment/Plan Assessment/Plan Assessment: Intractable abdominal pain, Intractable nausea and vomiting, Hypokalemia, Ventricular bigeminy, Uncontrolled hypertension, Plan: Admit to Tele, IV hydration, IV Protonix, Carafate QID, Mange/Monitor electrolytes closely, Consider GI consult, Consider cardiology consult, Antihypertensives, Home medications reconciled, Plan discussed with: Patient My Orders Orders - BESSY WILDE Procedure Category Date Status Time Electrocardigram EKG 11/28/24 Logged 09:58 Electrocardigram EKG 11/28/24 Logged 11:58 Metoclopramide PHA 11/28/24 In Process Injection (Reglan 10:15 Admit ADMIT 11/28/24 Transmitted 10:04 Code Status CODE 11/28/24 Transmitted 10:04 Hydrocodone-Acet PHA 11/28/24 Logged 5/325mg Tab ([place] 10:15 Docusate Sodium PHA 11/28/24 Logged Capsule (Colace 10:15 Complete Blood Count LAB 11/29/24 Verified 04:00 Comprehensive LAB 11/29/24 Verified Metabolic Panel 04:00 Condition: Serious TOY 11/28/24 In Process 10:04 Acetaminophen Tablet PHA 11/28/24 Logged (Tylenol Tablet) 10:15 Clear Liq Diet DIET 11/28/24 Transmitted Lunch Morphine Sulfate PHA 11/28/24 Logged Injection 10:15 Nitroglycerin PHA 11/28/24 Logged Sublingual (Ntrostat 10:15 Morphine Sulfate PHA 11/28/24 Logged Injection 10:15 Stat Ekg For Chest TOY 11/28/24 In Process Pain 10:04 Notify Md Of Changes TOY 11/28/24 In Process From Base 10:04 Industrial Electrician For [facility] 11/28/24 In Process 24 Hours 10:04 Emergency Dysrhythmia [facility] 11/28/24 In Process Protocol 10:04 Rhythm Strips Once [facility] 11/28/24 In Process Every Shift 10:04 Oxygen By Nasal RT 11/28/24 Transmitted Cannula 10:04 Metoclopramide PHA 11/28/24 Logged Injection (Reglan 10:15 Date of Service: Nov 28, 2024 Billing Provider: BESSY WILDE Common Visit Codes: [id number] INP/OBS CARE (MOD) BESSY WILDE Nov 28, 2024 10:29
[2024-11-28 11:21] LABS: Urine Protein, UAD 3+ (Negative)
[2024-11-28] MEDS ORDERED: SUCRALFATE 1 GM TAB PO SCH (11:30)
[2024-11-28] MEDS ORDERED: OXYCODONE W/ ACETAMINOPHEN 5/325MG TABLET PO SCH (12:00)
[2024-11-28 12:34] VITALS: BP 160/98; PULSE 76; TEMP 98.6; O2SAT 100
[2024-11-28 12:40] VITALS: BP 144/106
[2024-11-28 12:41] VITALS: PULSE 77; RESP 20; O2SAT 98
[2024-11-28 12:55] VITALS: BP 181/165
[2024-11-28] MEDS: hydrALAZINE HCL 20 MG/ML VL IV ONE (13:59)
[2024-11-28] MEDS: PANTOPRAZOLE 40 MG/10 ML VIAL INJ IV ONE (14:01)
[2024-11-28] MEDS: MORPHINE SULFATE INJ 2 MG/ml SYRG IV PRN (14:34)
[2024-11-28] MEDS: OXYCODONE W/ ACETAMINOPHEN 5/325MG TABLET PO SCH (17:14)
[2024-11-28] MEDS: SUCRALFATE 1 GM TAB PO SCH (17:15)
[2024-11-28] MEDS: MAGNESIUM SULFATE 1GM/100ML 100 ML IV SCH (18:37)
[2024-11-28] MEDS: METOCLOPRAMIDE HCL 5MG/ml INJ 2ml VIAL IV PRN (19:49)
[2024-11-28 21:00] VITALS: BP 123/71; PULSE 99; RESP 17; TEMP 98.1; O2SAT 99
[2024-11-29] VITALS (8 sets, daily range): BP systolic 96–123; BP diastolic 56–78; PULSE 69–86; RESP 16–20; TEMP 97.7–98.6; O2SAT 97–100
[2024-11-29 06:26] LABS: Hematocrit 40.9 % (36.0-46.0); Hemoglobin 13.6 g/dL (12.2-16.2); Mean Corpuscular Hemoglobin 30.2 pg (28.0-32.0); Mean Corpuscular Volume 90.9 fL (80.0-100.0); Nucleated Red Blood Cells % 0.0 %
[2024-11-29 06:40] LABS: Alanine Aminotransferase 21 U/L (7-40); Albumin 4.7 g/dL (3.2-4.8); Alkaline Phosphatase 58 U/L (46-116); Anion Gap 10 (5-15); Bilirubin, Total 0.9 mg/dL (0.2-1.0); Calcium 9.2 mg/dL (8.7-10.4); Carbon Dioxide 25 mmol/L (20-31); Chloride 102 mmol/L (98-107); Glucose 92 mg/dL (74-106); Magnesium 2.4 mg/dL (1.6-2.6); Sodium 137 mmol/L (136-145); Total Protein 7.8 g/dL (5.7-8.2)
[2024-11-29 06:56] LABS: BUN/Creatinine Ratio 7.6 (10.0-20.0); Blood Urea Nitrogen < 5 mg/dL (9-23); Potassium 3.4 mmol/L (3.5-5.1)
[2024-11-29] MEDS: PANTOPRAZOLE 40 MG/10 ML VIAL INJ IV SCH ×2 (09:45→21:28)
[2024-11-29] MEDS: DOCUSATE SOD 100 MG CAP PO PRN (09:45)
[2024-11-29] MEDS ORDERED: PANTOPRAZOLE 40 MG/10 ML VIAL INJ IV SCH (10:00)
--- NOTE | 2024-11-29 12:42 | DVH ---
CHEST RADIOGRAPH Indication: PNA/CHF Technique: Single frontal view of the chest was obtained Comparison: None FINDINGS: Lines and Tubes: None Lungs: No focal consolidation. Pleura: No effusion. No pneumothorax. Cardiomediastinal contours: Unremarkable Bones: No acute osseous abnormality. IMPRESSION: No acute cardiopulmonary disease.
[2024-11-29] MEDS: SODIUM CHLORIDE 0.9% 1,000 ML IV SCH (12:56)
--- NOTE | 2024-11-29 17:57 | DVHPNRES ---
Progress Note Date Seen: Nov 29, 2024 Resident Creating Document: KATELYN AGUILAR RESIDENT Medical Necessity Reason Pt with a Central, PICC or Fol: No Subjective Review of Systems Patient is 49 years old female with past medical history of gastritis, GERD, hiatal hernia came with a complaint of abdominal pain for last 10 days, severe, in the epigastric region, initially 10/10, intermittent, crampy, burning in nature. Pain was associated with nausea and vomiting, no blood. Patient denied any dysuria, fever, diarrhea, chest pain no shortness of breaths. Initial lab workup revealed potassium 3.2, blood sugar 121, lipase 59,. CT abdomen nonsignificant for acute intra-abdominal pathology. As per patient she had endoscopy done in 10/04/2024 revealed mild gastritis and 2 cm sliding hiatal hernia. PMH-history of gastritis, GERD, hiatal hernia PSH- none Allergy- NKDA Personal History/ Social History- patient reported vaping, occasional alcohol use, marijuana use, lives at home Cardiovascular- deny acute chest pain or shortness of breath or cough or palpitation Respiratory denies cough or short of breath or wheezing Musculoskeletal-denies acute joint swelling or tenderness or redness Neurological- denies acute dysarthria, dysphagia, change in vision Psychiatry- denies depression or SI or HI Skin- denies acute rash or purpura Patient was seen today at bedside, labs and chart reviewed. Patient reported her epigastric pain has improved. But still having nausea and some vomiting. Patient has a epigastric tenderness on palpation. Potassium replenished for hypokalemia. Objective vital signs Vital Sign Date Time Temp Pulse Resp B/P (MAP) Pulse Ox O2 Delivery O2 Flow Rate FiO2 11/29/24 16:38 98.6 75 17 104/63 (77) 99 98.6 11/29/24 08:00 Room Air* 0 21 Total Intake and Output 11/28/24 11/28/24 11/29/24 15:00 23:00 07:00 Intake Total 100 ml 200 ml Balance 100 ml 200 ml medications Current Medications Medications Dose Ordered Sig/Floyd Route Start Time Stop Time Status Last Admin Dose Admin Metoclopramide HCl 10 mg Q6HPRN PRN IV 11/28/24 10:30 11/29/24 09:46 10 MG Docusate Sodium 100 mg BIDPRN PRN PO 11/28/24 10:30 11/29/24 09:45 100 MG Acetaminophen 650 mg Q6HP PRN PO 11/28/24 10:30 Nitroglycerin 0.4 mg Q5MINP PRN SL 11/28/24 10:30 Sucralfate 1 gm QIDACHS PO 11/28/24 11:45 11/29/24 17:05 1 GM Oxycodone/ Acetaminophen 2 tab QID PO 11/28/24 12:15 11/29/24 17:20 2 TAB Pantoprazole Sodium 40 mg BID IV 11/29/24 22:00 Sodium Chloride 1,000 ml @ 100 mls/hr Q10H IV 11/29/24 10:45 11/29/24 12:56 100 MLS/HR Ceftriaxone Sodium 50 ml @ 100 mls/hr DAILY@09 IV 11/29/24 12:18 11/29/24 12:59 100 MLS/HR Metronidazole 100 ml @ 100 mls/hr Q8HR IV 11/29/24 12:18 11/29/24 17:04 100 MLS/HR Examination General examination- awake, alert, oriented HEENT- PEERLA, no acute nasal discharge Cardiovascular- S1-S2 audible, rate and rhythm regular, no murmur Respiratory- CTAB, no wheeze or rhonchi Gastrointestinal-mild epigastric tenderness+, , bowel sound+. Nondistended Musculoskeletal-no acute joint swelling or tenderness or redness Lower extremity- no leg edema Neurological- cranial nerves intact, no acute dysarthria or dysphagia Psychiatry- denies depression or SI or HI Skin- no acute rash or purpura laboratory and microbiology Laboratory Tests 11/29/24 05:15 Test 11/29/24 05:15 Range/Units Serum Glucose 92 74-106 mg/dL Microbiology Date/Time Source Procedure Growth Status 11/28/24 13:26 Nose MRSA Screen - Final Complete Problem List/Assessment/Plan Problem List/Assessment/Plan Assessment and plan # intractable abdominal pain and nausea and vomiting likely due to Acute Gastritis # acute gastroenteritis # suspected marijuana induced intractable nausea and vomiting and abdominal pain --patient reported she could not keep anything down to her stomach # ruled out acute pancreatitis # ruled out acute cholecystitis -continue pantoprazole 40 mg IV b.i.d. -ceftriaxone and metronidazole as prescribed -continue IV fluid as prescribed # SIRS --continue pantoprazole 40 mg IV b.i.d. -ceftriaxone and metronidazole as prescribed -continue IV fluid as prescribed # hypokalemia replenished -monitor BMP # history of gastritis -continue IV pantoprazole as prescribed # hiatal hernia -follow up outpatient with the metal patternmaker # history of marijuana abuse -patient is counseled about the effect of marijuana on health Goals of care, Code status full code; discussed with >15 minutes PUD prophylaxis: Pantoprazole DVT prophylaxis: No acute indication Plan discussed with Dr. Sinha , nursing staff, Total time spent on patient evaluation, chart review, assessment and plan, discussion discussion >35 minutes Plan discussed with: Patient, Other (RN) My Orders My Orders Orders - KATELYN AGUILAR Procedure Category Date Status Time Blood Alcohol LAB 11/29/24 In Process 09:05 Pantoprazole PHA 11/29/24 In Process (Protonix) 22:00 Mechanical Soft Diet DIET 11/29/24 Transmitted Lunch Sodium Chloride 0.9% PHA 11/29/24 In Process 10:45 Drug Screen LAB 11/29/24 Logged 11:20 Ceftriaxone 1gm/50ml PHA 11/29/24 In Process (Rocephin) 12:18 Metronidazole PHA 11/29/24 In Process 500mg/100ml (Flagyl 12:18 Chest Xray 1 View XY 11/29/24 Resulted 11:37 KATELYN AGUILAR RESIDENT Nov 29, 2024 17:57
[2024-11-29 22:33] LABS: Cannabinoid Screen, Urine Pos (NEGATIVE)
[2024-11-29 22:47] LABS: Amphetamine Screen, Urine Neg (NEGATIVE); Barbiturate Scree,Urine Neg (NEGATIVE); Benzodiazephine Screen, Urine Neg (NEGATIVE); Cocaine Screen, Urine Neg (NEGATIVE); Opiate Scree,Urine Pos (NEGATIVE); Phencyclidine Screen, Urine Neg (NEGATIVE)
[2024-11-30] VITALS (8 sets, daily range): BP systolic 88–134; BP diastolic 50–76; PULSE 49–84; RESP 17–20; TEMP 98–98.4; O2SAT 96–100
[2024-11-30 09:07] LABS: Chloride 102 mmol/L (98-107); Potassium 3.5 mmol/L (3.5-5.1); Sodium 136 mmol/L (136-145)
[2024-11-30 09:08] LABS: Anion Gap 9 (5-15); Carbon Dioxide 25 mmol/L (20-31)
[2024-11-30 09:09] LABS: Calcium 9.4 mg/dL (8.7-10.4)
[2024-11-30 09:14] LABS: Glucose 91 mg/dL (74-106)
[2024-11-30 09:16] LABS: BUN/Creatinine Ratio 6.9 (10.0-20.0); Blood Urea Nitrogen < 5 mg/dL (9-23)
[2024-11-30] MEDS ORDERED: AMOX500T86 PO (09:57)
[2024-11-30] MEDS ORDERED: DICY10CA PO (09:57)
[2024-11-30] MEDS: SODIUM CHLORIDE 0.9% 250 ML IV ONE (10:02)
--- NOTE | 2024-11-30 10:40 | ECG ---
[facility] Test Date: 2024-11-30 Test Time: 10:39:03 Pat Name: XOCHITL DALE Department: Room: [facility] B Gender: F Scrum Coach: ranulfo : 1975 Requested By: KATELYN AGUILAR Order Number: [id number] Reading MD: Measurements Intervals Cook Rate: 49 P: 73 PA: 184 QRS: 33 QRSD: 134 T: 30 QT: 530 QTc: 479 Interpretive Statements Sinus bradycardia Nonspecific intraventricular conduction delay Please click the below link to view image of tracing.
[2024-11-30] MEDS: SODIUM CHLORIDE 0.9% 1,000 ML IV ONE (10:47)
[2024-11-30 12:30] LABS: Hematocrit 37.4 % (36.0-46.0); Hemoglobin 12.2 g/dL (12.2-16.2); Mean Corpuscular Hemoglobin 29.9 pg (28.0-32.0); Mean Corpuscular Volume 91.8 fL (80.0-100.0); Nucleated Red Blood Cells % 0.1 %
--- NOTE | 2024-11-30 15:15 | DVHDSRES ---
Discharge Summary Date of Admission Resident Creating Document: KATELYN AGUILAR RESIDENT Nov 28, 2024 at 10:06 Date of Discharge: Nov 30, 2024 Admitting Diagnosis Intractable abdominal pain and nausea and vomiting likely due to gastritis Labs/Diagnostic Data: Laboratory Results Test 11/30/24 08:20 11/29/24 21:10 11/29/24 12:13 11/29/24 11:53 White Blood Count 6.7 10^3/uL (4.4-10.8) Red Blood Count 4.07 10^6/uL (4.0-5.20) Hemoglobin 12.2 g/dL (12.2-16.2) Hematocrit 37.4 % (36.0-46.0) Mean Corpuscular Volume 91.8 fL (80.0-100.0) Mean Corpuscular Hemoglobin 29.9 pg (28.0-32.0) Mean Corpuscular Hemoglobin Concent 32.6 g/dL (32.0-36.0) Red Cell Distribution Width 13.9 % (11.8-14.3) Platelet Count 264 10^3/uL (140-450) Mean Platelet Volume 8.9 fL (6.9-10.8) Neutrophils (%) (Auto) 45.3 % (37.0-80.0) Lymphocytes (%) (Auto) 47.0 % (10.0-50.0) Monocytes (%) (Auto) 7.4 % (0.0-12.0) Eosinophils (%) (Auto) 0.0 % (0.0-7.0) Basophils (%) (Auto) 0.3 % (0.0-2.0) Neutrophils # (Auto) 3.0 10 ^3/uL (1.6-8.6) Lymphocytes # (Auto) 3.1 10 ^3/uL (0.4-5.4) Monocytes # (Auto) 0.5 10 ^3/uL (0-1.3) Eosinophils # (Auto) 0 10 ^3/uL (0-0.8) Basophils # (Auto) 0 10 ^3/uL (0-0.2) Nucleated Red Blood Cells 0.1 % Sodium Level 136 mmol/L (136-145) Potassium Level 3.5 mmol/L (3.5-5.1) Chloride Level 102 mmol/L (98-107) Carbon Dioxide Level 25 mmol/L (20-31) Anion Gap 9 (5-15) Blood Urea Nitrogen < 5 mg/dL (9-23) Creatinine 0.72 mg/dL (0.550-1.02) Glomerular Filtration Rate Calc 103 mL/min (>90) BUN/Creatinine Ratio 6.9 (10.0-20.0) Serum Glucose 91 mg/dL (74-106) Calcium Level 9.4 mg/dL (8.7-10.4) Urine Opiates Screen Pos (NEGATIVE) Urine Fentanyl Screen Neg (NEGATIVE) Urine Barbiturates Screen Neg (NEGATIVE) Urine Phencyclidine Screen Neg (NEGATIVE) Urine Amphetamines Screen Neg (NEGATIVE) Urine Benzodiazepines Screen Neg (NEGATIVE) Urine Cocaine Screen Neg (NEGATIVE) Urine Cannabinoids Screen Pos (NEGATIVE) Vitamin B12 Level 452 pg/mL (211-911) Folic Acid 7.26 ng/mL (>5.38) Vitamin D 25-Hydroxy 8.8 ng/mL (30.0-100) Plasma/Serum Blood Alcohol < 3.0 mg/dL (<10) Test 11/29/24 05:15 11/28/24 10:23 11/28/24 04:17 11/28/24 03:13 Hemoglobin A1c 5.3 % A1C (<5.7) Magnesium Level 2.4 mg/dL (1.6-2.6) Total Bilirubin 0.9 mg/dL (0.2-1.0) Aspartate Amino Transferase (AST) 25 U/L (13-40) Alanine Aminotransferase (ALT) 21 U/L (7-40) Alkaline Phosphatase 58 U/L (46-116) Total Protein 7.8 g/dL (5.7-8.2) Albumin 4.7 g/dL (3.2-4.8) Thyroid Stimulating Hormone (TSH) 3.47 uIU/mL (0.55-4.78) Urine Color Yellow (Yellow) Urine Clarity Clear (Clear) Urine pH 6.0 (5.0-9.0) Urine Specific [place] > 1.050 (1.001-1.035) Urine Protein 3+ (Negative) Urine Ketones 3+ (Negative) Urine Blood 1+ /uL (Negative) Urine Nitrite Negative (Negative) Urine Bilirubin Negative (Negative) Urine Urobilinogen Normal mg/dL (Negative) Urine Leukocyte Esterase Negative /uL (Negative) Urine RBC 14 /hpf (0 - 4) Urine Microscopic WBC 4 /HPF (0-5) Urine Squamous Epithelial Cells Mod /hpf (<5) Urine Bacteria Few /hpf (None Seen) Urine Mucus Few (None Seen) Urine Glucose Normal mg/dL (Normal) Amylase Level 96 U/L (30-118) Lipase 59 U/L (12-53) Platelet Estimate Adequate Large Platelets Few Other Laboratory Tests 11/30/24 08:20 Brief Hx & Hospital Course: Patient is 49 years old female with past medical history of gastritis, GERD, hiatal hernia came with a complaint of abdominal pain for last 10 days, severe, in the epigastric region, initially 10/10, intermittent, crampy, burning in nature. Pain was associated with nausea and vomiting, no blood. Patient denied any dysuria, fever, diarrhea, chest pain no shortness of breaths. Initial lab workup revealed potassium 3.2, blood sugar 121, lipase 59,. CT abdomen nonsignificant for acute intra-abdominal pathology. As per patient she had endoscopy done in 10/04/2024 revealed mild gastritis and 2 cm sliding hiatal hernia. Hospital course-patient was treated conservatively during hospitalization. Patient had hypokalemia, replenished, patient was treated with pantoprazole, sucralfate, ceftriaxone and metronidazole for possible gastroenteritis and gastritis. Patient is counseled about the effect of marijuana on health. Patient's symptoms improved. Patient's hypotension likely from dehydration which improved after IV fluid. Patient tolerating oral diet well. Nausea and vomiting and abdominal pain improved. Patient is being discharged home with the pantoprazole 40 mg p.o. daily, sucralfate 1 g p.o. b.i.d., Zofran 4 mg q.6h PRN, Augmentin 5 mg p.o. b.i.d. for 7 days, Bentyl 10 mg p.o. b.i.d. for 5 days. Patient's meds were sent to the pharmacy electronically. Patient was hemodynamically stable on discharge. Patient was advised to follow up with the primary care physician in 1-2 weeks and with the pastry cook helper in 2-3 weeks. Assessment and plan # intractable abdominal pain and nausea and vomiting likely due to Acute Gastritis # acute gastroenteritis # suspected marijuana induced intractable nausea and vomiting and abdominal pain # ruled out acute pancreatitis # ruled out acute cholecystitis # sinus bradycardia, asymptomatic # SIRS # hypokalemia replenished # hiatal hernia # history of marijuana abuse Plan Continue pantoprazole 40 mg p.o. daily Continue sucralfate 1 g p.o. b.i.d. Zofran 4 mg q.6h PRN Augmentin 500 mg p.o. b.i.d. for 7 days Bentyl 10 mg p.o. b.i.d. as ordered Please follow up with the primary care physician in 1-2 week Please follow up with the pastry cook helper in 2-3 weeks for further evaluation and care Operations or Procedures [place] [id number] Ph: [phone] DIAGNOSTIC IMAGING Diagnostic Imaging Report : [id number] Signed PATIENT: XOCHITL DALE ACCT: [id number] UNIT: [id number] : 1975 LOC: ER ROOM / BED: / AGE / SEX: 49 / F ADM STATUS: REG ER SERVICE 0255 ORDERING PHYSICIAN: SHAAN DOUGLAS MD PROCEDURE(s): ABPL - CT AB PEL WO CON-NO ORAL OR IV REASON: abd pain ORDER NUMBER(s): [id number], ACCESSION NUMBER(s): [id number] CLINICAL INFORMATION: Abdominal pain. TECHNIQUE: Axial CT images of the abdomen and pelvis were obtained without IV contrast. Coronal and sagittal reformatted images were obtained, reviewed, and stored. Evaluation of the parenchymal organs is limited without IV contrast. Evaluation of the bowel and mesentery is limited without oral contrast. All CT scans at this medical facility are performed using dose modulation techniques as appropriate to a performed exam including the following: Automated exposure control was utilized; adjustment of the MA and/or KV according to patient size; and use of iterative reconstruction technique. CTDIvol = 9.74 mGy DLP = 614.79 mGy-cm COMPARISON: CT CT AB PEL WO CON-NO ORAL OR IV on DOS: 10/02/24 FINDINGS: Examination is limited due to motion artifact and prominent beam hardening artifact. There is dense material in the visualized portions of the right arm near the antecubital region, likely extravasated IV contrast causing prominent beam hardening artifact. There is also beam hardening artifact from the patient being scanned with arms at sides. Lung bases: Lung bases are clear. Liver: Grossly unremarkable. Biliary: Ill-defined density within the gallbladder, may be artifact or possible sludge. Spleen: Grossly unremarkable. Pancreas: Grossly unremarkable. Adrenal glands: Grossly unremarkable. Kidneys: No hydronephrosis. No renal or ureteral calculi. Aorta/Vascular: No abdominal aortic aneurysm. Minimal calcification. Retroperitoneum: Grossly unremarkable. Bowel/mesentery: No small bowel obstruction. No free air or free fluid. Appendix is visualized and appears unremarkable. Pelvic organs: Grossly unremarkable. Bladder: Unremarkable. No mass. Abdominal wall: No mass or hernia. Bones: No acute fracture or suspicious intraosseous lesion. IMPRESSION: 1. Limited examination for the reasons described above. 2. No acute abnormality identified in the abdomen or pelvis. ATED BY: YANG HERRING DO DICTATED DATE/TIME: 11/28/24741 SIGNED BY: YANG HERRING DO SIGNED DATE/TIME: 11/28/24741 CC: [place] [id number] Ph: [phone] DIAGNOSTIC IMAGING Diagnostic Imaging Report : [id number] Signed PATIENT: XOCHITL DALE ACCT: [id number] UNIT: [id number] : 1975 LOC: [facility] ROOM / BED: [address] [place] [address] B AGE / SEX: 49 / F ADM STATUS: ADM IN SERVICE 1137 ORDERING PHYSICIAN: KATELYN AGUILAR RESIDENT PROCEDURE(s): CXR1 - CHEST XRAY 1 VIEW REASON: ?PNA/CHF ORDER NUMBER(s): [id number], ACCESSION NUMBER(s): [id number] CHEST RADIOGRAPH Indication: PNA/CHF Technique: Single frontal view of the chest was obtained Comparison: None FINDINGS: Lines and Tubes: None Lungs: No focal consolidation. Pleura: No effusion. No pneumothorax. Cardiomediastinal contours: Unremarkable Bones: No acute osseous abnormality. IMPRESSION: No acute cardiopulmonary disease. ATED BY: DENNIS CHILDERS MD DICTATED DATE/TIME: 11/29/24 1239 SIGNED BY: DENNIS CHILDERS MD SIGNED DATE/TIME: 11/29/24 1239 CC: Condition at Discharge: Stable Final Diagnosis/Problems List # acute gastroenteritis, infectious etiology likely # intractable abdominal pain and nausea and vomiting likely due to Acute Gastritis # suspected marijuana induced intractable nausea and vomiting and abdominal pain # ruled out acute pancreatitis # ruled out acute cholecystitis # SIRS # hypokalemia replenished # hiatal hernia # history of marijuana abuse Discharge Disposition: Home Discharge Instruct/Medications Follow Up/Referral: Please follow up with the primary care physician in 1-2 weeks Please follow up with the pastry cook helper in 2-3 weeks Medications: As above Scheduled Amoxicillin & Pot Clavulanate (Augmentin), 1 TAB PO BID Dicyclomine Hcl (Bentyl Capsule), 1 CAP PO TID Oxycodone W/ Acetaminophen (Percocet 5/325MG), 2 TAB PO QID, (Reported) Pantoprazole Sodium Sesquihydr (Pantoprazole Sodium), 40 MG PO DAILY Sucralfate (Sucralfate), 1 GM PO BID Tizanidine Hydrochloride (Zanaflex), 1 CAP PO BID, (Reported) Scheduled PRN Ibuprofen (Ibuprofen), 1 TAB PO TID PRN Ondansetron Odt 4MG Tab (Zofran Po), 4 MG PO Q6HP PRN Discontinued Medications Amoxicillin & Pot Clavulanate (Augmentin Tablet), 875 MG PO BID Pantoprazole Sodium (Protonix), (Reported) Discharge Statement: "Patient was advised to return to the ER or call 911 if any headaches, dizziness, shortness of breath, chest pain, abdominal pain, bleeding, fevers, or worsening of medical condition. Patient was counseled about treatment plan, medications, possible side effects, patientverbalized understanding. All questions were answered to the best of my ability. This discharge took greater then 30 minutes in planning, reviewing documentation, counseling the patient, and discussing with other team members." ASSESSMENT ASSESSMENT Assessment Date of Service: Nov 30, 2024 Billing Provider: VICK BENTON MD Common Visit Codes: 09592-BQX/OBS DISCH DAY >30min KATELYN AGUILAR Nov 30, 2024 15:15 VICK BENTON MD Dec 03, 2024 08:06
[2024-11-30] MEDS ORDERED: ZOFR4T PO (15:16)
== END 2024-11-30 20:30 | disposition home or self-care (01) | DRG 241 ==
LOC: EDBD 02:44 → EDUNIT# 02:44 → ER 02:44 → UNDOADMIN 10:04 → OVERFLOW 10:04 → ER 10:06 → TELE-WESTW 22:07 → WEST WING 11-30 08:47
PROVIDERS: ADMIT Student in an Organized Health Care Education/Training Program; ATTEND Student in an Organized Health Care Education/Training Program
DX: K29.00 Acute gastritis without bleeding (principal); A09 Infectious gastroenteritis and colitis, unspecified; E87.6 Hypokalemia; I10 Essential (primary) hypertension; R65.10 Systemic inflammatory response syndrome (SIRS) of non-infectious origin without acute organ dysfunction; K44.9 Diaphragmatic hernia without obstruction or gangrene; K21.9 Gastro-esophageal reflux disease without esophagitis; F12.10 Cannabis abuse, uncomplicated; R00.1 Bradycardia, unspecified; Z87.891 Personal history of nicotine dependence
CPT/HCPCS: 36415; 71045; 74176; 80048; 80053; 80307; 80320; 81001; 82150; 82306; 82607; 82746; 83036; 83690; 83735; 84443; 85025; 87040; 87081; 93005; 96374; G0378; J2405; J2470; J3490